=== PATIENT | female | born 1950 | race Caucasian/White ===

== ENCOUNTER → 2016-03-09 | Day surgery (SDC) | payer MEDICARE, BC ==
[~2016-03-09] MED LIST: Acetaminophen TAB* 325 MG PO PRN; Buffered Lidocaine 1% SYR 3ML* 3 ML/SYR SYRINGE INTRADERM ONE; Buffered Lidocaine 1% SYR 3ML* 3 ML/SYR SYRINGE ONE; Bupivacaine 0.25% EPI 200,000* 30 ML SDV ONE; Dexamethasone IV* 4 MG/ML 1 ML (4 MG) ONE; Famotidine IV* 10 MG/ML 2 ML (20 mg) ONE; HYDROcodone/ACETAMIN 5-325 MG* 1 TAB ONE; HYDROcodone/ACETAMIN 5-325 MG* 1 TAB PO PRN; Ketorolac INJ* 30 MG/ML 1 ML VIAL ONE; Levofloxacin 500 MG IVPREMIX(* 500 MG/100 ML BAG IVPB ONE; Lidocaine 2% PF * 5 ML VIAL ONE; Midazolam* 1 MG/ML 2 ML VIAL (2 MG) ONE; Ondansetron INJ* 2 MG/ML VIAL IV PRN; Ondansetron INJ* 2 MG/ML VIAL ONE; PROCHLORPERAZINE INJ 5 MG/ML 2 ML VIAL IV PRN; PROCHLORPERAZINE INJ 5 MG/ML 2 ML VIAL ONE; Propofol* 10 MG/ML 20 ML BTL IV PUSH ONE; Rocuronium* 10 MG/ML VIAL ONE; fentaNYL* 50 MCG/ML 2 ML VIAL (100 MCG VIAL) IV PRN; fentaNYL* 50 MCG/ML 2 ML VIAL (100 MCG VIAL) ONE; metroNIDAZOLE IV 500 MG/100ML* 500 MG/100 ML BAG IVPB ONE
[2016-03-09 19:03] VITALS: BP 113/50
--- NOTE | 2016-03-10 06:33 | OP ---
DATE OF OPERATION: 03/09/16 [facility] DATE OF : 48 SURGEON: Boris Steele MD REGULATORY AND COMPLIANCE TECHNICIAN: Lay Ernst NP ANESTHESIOLOGIST: Dr. Santo. ANESTHESIA: General anesthetic, local infiltration. PRE-OP DIAGNOSIS: Acute and chronic cholecystitis. POST-OP DIAGNOSIS: Acute and chronic cholecystitis. OPERATIVE PROCEDURE: Laparoscopic cholecystectomy. DESCRIPTION OF PROCEDURE: The patient was supine on the operating room table. After adequate general anesthetic, compression stockings, Yola Hugger warmer, and intravenous antibiotics; the abdomen was prepped with antiseptic; and draped in a sterile fashion. Local infiltrative anesthesia was administered. A small umbilical incision was created. Blunt port cannula was placed. Insufflation was carried out with carbon dioxide. Additional cannulae; 12 mm subxiphoid and 5 mm right upper quadrant and right anterior axillary line were placed through small stab wounds under direct vision. Gallbladder was acutely inflamed and tense and edematous. It was opened at its dome and clear bile was suctioned out. Omental adhesions were taken down off the entirety of the gallbladder and the cystic duct and cystic artery were readily identified, clipped, and divided. This required dissecting away the edematous adipose. Critical angle view was obtained and everything was in good condition. The gallbladder was taken off the liver bed with electrocautery. The plane was a kind of raw and oozed a lot and required some Surgicel and packing gauze. After about 10 to 15 minutes of holding pressure, hemostasis was excellent and copious irrigation was carried out with warm saline solution. Free fluid was suctioned out. Hemostasis was again confirmed. The gallbladder was removed in retrieval bag through the subxiphoid site, which needed to be enlarged for that purpose and inspection again revealed everything in good condition. The cannulae removed and pneumoperitoneum was allowed to escape. The fascia and the 2 larger incisions were closed with 0 Polysorb and skin with 5-0 Polysorb followed by Steri-Strips. She tolerated the procedure well, was awakened, and brought to recovery in good condition. There were no complications. No drains. Pathologic specimen was gallbladder. Sponge and counts counts correct. Estimated blood loss 200 mL. Note: This procedure was substantially more difficult and time consuming than usual due to the severe infection. CC: Florentino Son MD * [id number]/[facility] #: [id number] NIALL
== END | disposition home or self-care (01) ==
LOC: OR 10:38
PROVIDERS: ATTEND Surgery
DX: K80.12 Calculus of gallbladder with acute and chronic cholecystitis without obstruction (principal); I10 Essential (primary) hypertension; E11.9 Type 2 diabetes mellitus without complications; E03.9 Hypothyroidism, unspecified
CPT/HCPCS: 36415; 86803; 88304; J0780; J1100; J1885; J1956; J2250; J2405; J2704; J3010; J3490

== ENCOUNTER 2017-10-01 18:27 | Emergency (ER) | payer MEDICARE, BC ==
--- NOTE | 2017-10-01 20:24 | ED ---
Lower Extremity - HPI Summary HPI Summary: 67 year old female presents with right foot injury today. She states she tripped and injured her right foot. She states she has previous fracture to that area. Denies any numbness or tingling. States she is able to ambulate. She stated she also on her right shoulder. She has full range of motion shoulder. She has some abrasion noted to her face. No loss consciousness. No nausea and vomiting. no neck pain. fall was a mechanical fall. no other injury noted. she denies any headache. immunizations up to date. - History of Current Complaint Chief Complaint: EDExtremityLower Stated Complaint: FALL/RT FT INJURY Time Seen by Provider: 10/01/17 19:40 Pain Intensity: 3 - Allergies/Home Medications Allergies/Adverse Reactions: Allergies Allergy/AdvReac Type Severity Reaction Status Date / Time MS Penicillins [Penicillins] Allergy Rash Verified 10/01/17 20:24 MS Shellfish Allergy Allergy Vomiting Verified 10/01/17 20:24 [Shellfish Allergy] MS Sulfa Antibiotics Allergy Rash Verified 10/01/17 20:24 [Sulfa Antibiotics] MS Sulfanilamide Allergy Rash Verified 10/01/17 20:24 [Sulfanilamide] PMH/Surg Hx/FS Hx/Imm Hx Endocrine/Hematology History: Reports: Hx Diabetes - TYPE II, Hx Thyroid Disease - HYPOTHYROID Cardiovascular History: Reports: Hx Hypertension - WITH FIRST , NONE SINCE, Other Cardiovascular Problems/Disorders - CHOLESTEROL CONTROL WITH MEDS Denies: Hx Pacemaker/ICD GI History: Reports: Hx Gastroesophageal Reflux Disease - CONTROL WITH MEDS ( HEARTBURN), Hx Irritable Bowel History: Reports: Hx Kidney Stones, Other Problems/Disorders - NUMBEROUS BLADDER INFECTIONS OVER THE YEARS Musculoskeletal History: Denies: Hx Osteoporosis Sensory History: Reports: Hx Contacts or Glasses Denies: Hx Hearing Aid Opthamlomology History: Reports: Hx Contacts or Glasses Psychiatric History: Reports: Hx Depression - ON MEDICATION FOR Denies: Hx Panic Disorder - Cancer History Hx Chemotherapy: No Hx Radiation Therapy: No - Surgical History Surgery Procedure, Year, and Place: 1997-HYSTERECTOMY- [facility] [place]. 1969-BENIGN LUMP REMOVED LEFT BREAST- [place], [place]. 2016 LITHOTRIPSY RIGHT URETERAL STONE, [facility] [place]. 02/2016 CHOLECYSTECTOMY, [facility] [place] Hx Anesthesia Reactions: No Infectious Disease History: No Infectious Disease History: Denies: Hx of Known/Suspected MRSA, Traveled Outside the [place] in Last 30 Days - Family History Known Family History: Positive: Hypertension - Social History Alcohol Use: Occasionally Substance Use Type: Reports: None Smoking Status (MU): Never Smoked Tobacco Review of Systems Negative: Fever Negative: Chest Pain Negative: Shortness Of Breath Positive: Myalgia - right foot pain All Other Systems Reviewed And Are Negative: Yes Physical Exam Triage Information Reviewed: Yes Vital Signs On Initial Exam: Initial Vitals Temp Pulse Resp BP Pulse Ox 98.2 F 78 18 150/62 96 10/01/17 18:46 10/01/17 18:46 10/01/17 18:46 10/01/17 18:46 10/01/17 18:46 Vital Signs Reviewed: Yes Appearance: Positive: Well-Appearing Skin: Positive: Warm, Dry, Other - bruising to right foot midfoot anterior Head/Face: Positive: Normal Head/Face Inspection Eyes: Positive: Normal, Conjunctiva Clear ENT: Positive: Pharynx normal Respiratory/Lung Sounds: Positive: Clear to Auscultation, Breath Sounds Present Cardiovascular: Positive: Normal, RRR Musculoskeletal: Positive: Strength/ROM Intact - right foot, Other - good pulses , capillary refill<2 secs Neurological: Positive: Normal Psychiatric: Positive: Normal Diagnostics - Vital Signs Vital Signs Temp Pulse Resp BP Pulse Ox 10/01/17 18:46 98.2 F 78 18 150/62 96 - Laboratory Lab Statement: Any lab studies that have been ordered have been reviewed, and results considered in the medical decision making process. Lower Extremity Course/Dx - Course Course Of Treatment: 67 year old female presents with right foot injury today. She states she tripped and injured her right foot. She states she has previous fracture to that area. Denies any numbness or tingling. States she is able to ambulate. She stated she also on her right shoulder. She has full range of motion shoulder. She has some abrasion noted to her face. No loss consciousness. No nausea and vomiting. no neck pain. fall was a mechanical fall. no other injury noted. on exam has brusing noted to top of right midfoot. neurovascular intact. xray read by me as no acute fx although hard to tell with arthritis. discussed could place in splint as may be fx and patient declined and will use post op shoe instead. gave referral to ortho if not improving. patient understand and agrees with plan. - Diagnoses Differential Diagnosis/HQI/PQRI: Positive: Contusion, Fracture (Closed), Sprain Provider Diagnoses: Fall, Right foot injury Discharge - Sign-Out/Discharge Documenting (check all that apply): Patient Departure - Discharge Plan Condition: Good Disposition: HOME Patient Education Materials: R.I.C.E. Treatment (ED) Referrals: Florentino Son MD [Primary Care Provider] - Pool Huang MD [Medical Doctor] - Additional Instructions: Wear hard sole shoes Ice, elevate Take Tylenol or ibuprofen for pain every 6 hours as needed Follow up with primary if no improvement Return to ED if develop or any new or worsening symptoms - Billing Disposition and Condition Condition: GOOD Disposition: Home
[2017-10-01 20:40] VITALS: BP 140/90
--- NOTE | 2017-10-02 08:03 | RAD ---
INDICATION: Right ankle pain COMPARISON: None TECHNIQUE: AP and lateral views were obtained. FINDINGS: There is no acute fracture. The ankle mortise is intact. There are heel spurs. There is degenerative change but the midfoot. IMPRESSION: NO ACUTE BONY FINDINGS. R0
--- NOTE | 2017-10-02 08:06 | RAD ---
INDICATION: Right foot pain COMPARISON: None TECHNIQUE: AP, lateral, and oblique views were obtained. FINDINGS: There are no acute bony findings. There are old, healed, second and third metatarsal fractures. 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 There is a prominent plantar calcaneal spur. The soft tissues are intact. IMPRESSION: NO ACUTE BONY FINDINGS. R0
== END 2017-10-01 20:39 | disposition home or self-care (01) ==
LOC: ED 18:27
DX: S99.921A Unspecified injury of right foot, initial encounter (principal); W19.XXXA Unspecified fall, initial encounter; Y92.9 Unspecified place or not applicable; Z87.442 Personal history of urinary calculi
CPT/HCPCS: 99282